=== PATIENT | male | born 1975 | race Caucasian/White ===

== ENCOUNTER → 2020-11-24 | Outpatient (CLI) | payer BC ==
--- NOTE | 2020-11-24 15:10 | Diagnostic Imaging Report ---
HISTORY: Right shoulder pain. TECHNIQUE: Two views of the right shoulder. COMPARISON: None. FINDINGS: No acute fracture or dislocation is seen in the right shoulder. Alignment appears normal. There is mild degenerative change in the acromioclavicular joint. Glenohumeral joint space is preserved. IMPRESSION: 1. Mild degenerative change in the right acromioclavicular joint with no acute osseous abnormality seen. Dictated by: Dictated on workstation # [id number]
--- NOTE | 2020-11-24 15:14 | Diagnostic Imaging Report ---
HISTORY: Right shoulder pain. TECHNIQUE: Two views of the right clavicle. COMPARISON: None. FINDINGS: No acute fracture is seen in the right clavicle. Alignment appears normal. There is a linear lucency at the right mid clavicle along the superior cortex, which is thought to represent a nutrient canal. There are mild degenerative changes in the acromioclavicular joint. IMPRESSION: 1. Linear lucency at the superior cortex of the right mid clavicle is thought to represent a nutrient canal rather than a fracture. If pain localizes to this location, consider cross-sectional imaging. Dictated by: Dictated on workstation # [id number]
== END ==
LOC: RAD FS 13:15
DX: M19.011 Primary osteoarthritis, right shoulder (principal)
CPT/HCPCS: 73000; 73030